=== PATIENT | male | born 1955 | race Caucasian/White ===

== ENCOUNTER 2018-01-16 09:21 | Emergency (ER) | payer BC ==
[~2018-01-16] VITALS: Ht 180.3 cm; Wt 93.2 kg
[2018-01-16] MEDS ORDERED: LIDOcaine 1.5% w/epinephrine 1:200,000 5ml ampul IJ ONE (10:20)
[2018-01-16] MEDS ORDERED: TETanus/Pertussis (Acell)/Diphther VAC/PF (Tdap-Adult) 0.5ml syringe IM ONE (10:20)
[2018-01-16] MEDS ORDERED: AMOX-422 PO (10:29)
[2018-01-16 10:35] VITALS: BP 171/89
== END 2018-01-16 11:15 | disposition home or self-care (01) ==
LOC: ER 09:22 → EDSEX 09:22 → ER 11:15
DX: K61.1 Rectal abscess (principal); Z79.2 Long term (current) use of antibiotics
CPT/HCPCS: 46040; 90471; 90715; 99284; A6266; A6449; J3490

== ENCOUNTER 2020-03-16 13:12 | Inpatient (IN) | payer BC ==
[~2020-03-16] VITALS: Ht 180.3 cm; Wt 90.4 kg
[2020-03-16] MEDS ORDERED: normal saline 1000ml 1,000 ML IV ONE (13:40)
[2020-03-16 14:16] LABS: BASOPHILS # (AUTO) 0.1 X10'3 (0-0.2); BASOPHILS % (AUTO) 0.7 % (0-1); EOSINOPHILS # (AUTO) 0.1 X10'3 (0-0.9); EOSINOPHILS % (AUTO) 0.8 % (0-6); HEMATOCRIT 46.1 % (42.0-52.0); LYMPHOCYTES # (AUTO) 2.8 X10'3 (1.1-4.8); LYMPHOCYTES % (AUTO) 15.7 % (21-51); MEAN CORPUSCULAR HEMOGLOBIN 30.3 PG (27.0-31.0); MEAN CORPUSCULAR HGB CONC 34.7 g/dL (33.0-36.5); MEAN CORPUSCULAR VOLUME 87.4 FL (78-98); MEAN PLATELET VOLUME 7.6 FL (7.4-10.4); MONOCYTES # (AUTO) 1.3 X10'3 (0-0.9); MONOCYTES % (AUTO) 7.1 % (2-12); NEUTROPHILS # (AUTO) 13.5 X10'3 (1.8-7.7); NEUTROPHILS % (AUTO) 75.7 % (42-75); PLATELET COUNT 245 X10'3 (140-440); RED BLOOD COUNT 5.27 X10'6 (4.70-6.10); RED CELL DISTRIBUTION WIDTH 13.2 % (11.5-14.5); WHITE BLOOD COUNT 17.9 X10'3 (4.5-11.0)
[2020-03-16 14:39] LABS: ALANINE AMINOTRANSFERASE 49 U/L (12-78); ALBUMIN 3.6 G/DL (3.4-5.0); ALBUMIN/GLOBULIN RATIO 0.8 (1.1-1.5); ALKALINE PHOSPHATASE 60 IU/L (46-116); ANION GAP 15 (8-16); ASPARTATE AMINO TRANSFERASE 17 U/L (10-37); BILIRUBIN,TOTAL 0.9 MG/DL (0.1-1.0); BLOOD UREA NITROGEN 22 MG/DL (7-18); BUN/CREATININE RATIO 16.9 (5.4-32.0); CALCIUM 9.6 MG/DL (8.5-10.1); CHLORIDE 101 MMOL/L (99-107); GLUCOSE 112 MG/DL (70-104); POTASSIUM 3.6 MMOL/L (3.5-5.1); SODIUM 138 MMOL/L (135-145); TOTAL CARBON DIOXIDE 21.9 MMOL/L (24-32); TOTAL PROTEIN 8.4 G/DL (6.4-8.2); eGFR 56 ML/MIN
[2020-03-16] MEDS ORDERED: clindamycin 600mg/D5W 50ml 50 ML IV ONE (14:40)
[2020-03-16 14:45] LABS: CLARITY,URINE CLEAR (Clear); COLOR,URINE YELLOW (Yellow); GLUCOSE, URINE NEGATIVE (Neg); KETONES,URINE TRACE mg/dl (Neg); LEUKOCYTE ESTERASE ,URINE NEGATIVE (Neg); NITRITES, URINE NEGATIVE (Neg); OCCULT BLOOD,URINE TRACE-LYSED (Neg); PH,URINE 5.5 (4.8-8.0); PROTEIN,URINE 30 mg/dl (Neg); UA COLLECTION TYPE NON-SPECIFIED
[2020-03-16 14:51] LABS: HYALINE CASTS 0-3 /LPF (NEGATIVE); MUCUS STRANDS FEW /LPF (Neg)
[2020-03-16 14:52] LABS: BACTERIA,URINE FEW /HPF (Neg); SQUAMOUS EPITHELIAL CELL,UR MODERATE /LPF (FEW); WBC,URINE 0-4 /HPF (0-4)
[2020-03-16] MEDS ORDERED: iohexol 300mg/ml 100ml inj. ONE (15:08)
[2020-03-16] MEDS ORDERED: ketorolac tromethamine 15mg/ml inj. IV ONE (16:05)
--- NOTE | 2020-03-16 16:17 | NUR ---
CHAPERONED PA WITH RECTAL EXAM, NO EXTERNAL BLOOD NOTED. HEMOCCULT NEGATIVE
[2020-03-16] MEDS ORDERED: potassium CL 10mEq/100ml bag 100 ML IV PRN ×2 (17:00)
[2020-03-16] MEDS ORDERED: potassium Cl 20 mEq SR tablet PO PRN ×2 (17:00)
[2020-03-16] MEDS ORDERED: magnesium Cl slow-release 64mg tablet PO PRN (17:00)
[2020-03-16] MEDS ORDERED: HYDROcodone/acetaminophen 5mg/325mg tablet PO PRN (17:00)
[2020-03-16] MEDS ORDERED: acetaminophen 325mg tablet PO PRN (17:00)
[2020-03-16] MEDS ORDERED: magnesium 4gm in 100ml NS 100 ML IV PRN (17:00)
[2020-03-16] MEDS ORDERED: magnesium 2GM in 50ml NS 50 ML IV PRN (17:00)
[2020-03-16] MEDS ORDERED: morphine 2 MG/ML inj. syringe IV PRN (17:00)
[2020-03-16] MEDS ORDERED: ondansetron/PF 4mg/2ml inj IV PRN (17:00)
[2020-03-16] MEDS ORDERED: ZINC50TA67 PO (17:04)
[2020-03-16] MEDS ORDERED: MAGN200T5 PO (17:05)
[2020-03-16] MEDS: normal saline 1000ml 1,000 ML IV SCH (18:45)
[2020-03-16] MEDS: K and/or MAG REPLACEMENT MC SCH (19:25)
[2020-03-16] MEDS: docusate sod 100mg capsule PO SCH (21:53)
--- NOTE | 2020-03-16 22:00 | NUR ---
Received report from CAMILO Nunn. Awaiting patient arrival to the floor.
--- NOTE | 2020-03-16 22:10 | NUR ---
Patient arrived to the floor via wheelchair accompanied by PCT. Placed in room 354C. Alert and oriented on room air, in no apparent distress. Call light and items of frequent use within reach. Will continue to monitor.
[2020-03-16 22:15] VITALS: BP 152/81
[2020-03-17] VITALS (21 sets, daily range): BP systolic 114–157; BP diastolic 60–89
[2020-03-17] MEDS: piperacillin/tazo 3.375gm/50ml 50 ML IV SCH ×4 (01:45→19:44)
[2020-03-17] MEDS: normal saline 1000ml 1,000 ML IV SCH ×3 (05:26→17:16)
[2020-03-17 05:44] LABS: BASOPHILS # (AUTO) 0.1 X10'3 (0-0.2); BASOPHILS % (AUTO) 0.5 % (0-1); EOSINOPHILS # (AUTO) 0.1 X10'3 (0-0.9); EOSINOPHILS % (AUTO) 0.9 % (0-6); HEMATOCRIT 39.6 % (42.0-52.0); HEMOGLOBIN 13.8 g/dl (14.0-17.9); LYMPHOCYTES # (AUTO) 2.7 X10'3 (1.1-4.8); LYMPHOCYTES % (AUTO) 19.1 % (21-51); MEAN CORPUSCULAR HEMOGLOBIN 30.3 PG (27.0-31.0); MEAN CORPUSCULAR HGB CONC 34.9 g/dL (33.0-36.5); MEAN CORPUSCULAR VOLUME 86.9 FL (78-98); MEAN PLATELET VOLUME 7.5 FL (7.4-10.4); MONOCYTES # (AUTO) 1.1 X10'3 (0-0.9); MONOCYTES % (AUTO) 7.9 % (2-12); NEUTROPHILS # (AUTO) 10.3 X10'3 (1.8-7.7); NEUTROPHILS % (AUTO) 71.6 % (42-75); PLATELET COUNT 238 X10'3 (140-440); RED BLOOD COUNT 4.56 X10'6 (4.70-6.10); RED CELL DISTRIBUTION WIDTH 13.3 % (11.5-14.5); WHITE BLOOD COUNT 14.3 X10'3 (4.5-11.0)
[2020-03-17 05:56] LABS: ANION GAP 10 (8-16); BLOOD UREA NITROGEN 21 MG/DL (7-18); BUN/CREATININE RATIO 17.6 (5.4-32.0); CALCIUM 8.4 MG/DL (8.5-10.1); CHLORIDE 104 MMOL/L (99-107); CREATININE 1.19 MG/DL (0.60-1.10); GLUCOSE 97 MG/DL (70-104); POTASSIUM 3.5 MMOL/L (3.5-5.1); SODIUM 139 MMOL/L (135-145); TOTAL CARBON DIOXIDE 25.1 MMOL/L (24-32); eGFR 62 ML/MIN
--- NOTE | 2020-03-17 06:04 | NUR ---
Problems reprioritized. Patient report given, questions answered & plan of care reviewed with CAMILO Cooney.
--- NOTE | 2020-03-17 06:31 | NUR ---
Patient in room [facility] 354. I have received report from CAMILO Grubbs and had the opportunity to ask questions and assume patient care.
[2020-03-17] MEDS: docusate sod 100mg capsule PO SCH ×2 (07:09→19:45)
[2020-03-17] MEDS: K and/or MAG REPLACEMENT MC SCH ×2 (08:00→20:00)
--- NOTE | 2020-03-17 14:20 | NUR ---
Pt out to OR. Report given to CAMILO Hampton.
[2020-03-17] MEDS ORDERED: sevoflurane 250ml liquid IH ONE (14:32)
[2020-03-17] MEDS ORDERED: famotidine/PF 10 mg/ml inj IV ONE (14:41)
[2020-03-17] MEDS ORDERED: fentaNYL/PF 50MCG/1 ML 2ML syringe ONE (14:42)
[2020-03-17] MEDS ORDERED: midazolam 2 mg/2 ml injection ONE (14:46)
[2020-03-17] MEDS ORDERED: propofol inj 20 ML IV ONE (14:51)
[2020-03-17] MEDS ORDERED: LIDOcaine 2% (20mg/ml) 5ml vial ONE ×2 (14:51→15:03)
[2020-03-17] MEDS ORDERED: ondansetron/PF 4mg/2ml inj ONE (14:52)
[2020-03-17] MEDS ORDERED: dexamethasone sod phosphate 4mg/ml inj. ONE (14:52)
[2020-03-17] MEDS ORDERED: morphine 10mg/ml inj. ONE (15:12)
--- NOTE | 2020-03-17 15:19 | NUR ---
RECEIVED FROM OR VIA BED ACCOMPANIED BY ANESTHESIOLOGIST DR ANAYA, REPORT GIVEN. PT DROWSY BUT AROUSES WITH NO COMPLAINT OF PAIN. 18 GAUGE PIV R AC PATENT AND RUNNING NS AT 100 ML/HR. HARPER, ABD SOFT, PPULSES PRESENT, BRISK CAP REFILL, SKIN PINK AND WARM, VSS. SHABBIR RECTAL DRESSING CDI COMPRISED OF PACKING, 4X4 AND MESH UNDEERWEAR. SCDS APPLIED AND PT RESTING COMFORTABLY
[2020-03-17] MEDS ORDERED: HYDROcodone/acetaminophen 10/325mg tab PO PRN (15:20)
[2020-03-17] MEDS ORDERED: hydrALAZINE 20mg/ml inj. IV PRN (15:30)
[2020-03-17] MEDS ORDERED: labetalol 20mg/4ml (5mg/ml) syringe IV PRN (15:30)
[2020-03-17] MEDS ORDERED: meperidine/PF 25mg/ml syringe IV PRN ×3 (15:30)
[2020-03-17] MEDS ORDERED: ondansetron/PF 4mg/2ml inj IV PRN (15:30)
[2020-03-17] MEDS ORDERED: ringers solution, lacted 1,000 ML IV SCH (15:30)
[2020-03-17] MEDS ORDERED: acetaminophen 1,000mg/100ml IV 100 ML IV PRN (15:30)
[2020-03-17] MEDS ORDERED: morphine 4 MG/ML inj SYRINge IV PRN (15:30)
[2020-03-17] MEDS ORDERED: proCHLORperazine 10 MG/2 ml inj IV PRN (15:30)
[2020-03-17] MEDS ORDERED: morphine 2 MG/ML inj. syringe IV PRN (15:30)
--- NOTE | 2020-03-17 16:36 | NUR ---
TRANSFERRED VIA BED, REPORT GIVEN. PT AWAKE AND ALERT WITH NO COMPLAINT OF PAIN. 18 GAUGE PIV R AC PATENT AND RUNNING NS AT 100 ML/HR. HARPER, ABD SOFT, PPULSES PRESENT, BRISK CAP REFILL, SKIN PINK AND WARM, VSS. SHABBIR RECTAL DRESSING CDI COMPRISED OF PACKING, 4X4 AND MESH UNDERWEAR. SCDS APPLIED AND PT RESTING COMFORTABLY. LEFT IN CARE OF MISAEL PAGE.
--- NOTE | 2020-03-17 17:43 | NUR ---
Pt back from surgery around 1640. Received report from evita. Pt stable c/o mild nausea. PRN Zofran given. V/S 97.9,, 124/82, 75, 14, 96%. No s/s bleeding or complication noted.
--- NOTE | 2020-03-17 18:30 | NUR ---
Problems reprioritized. Patient report given, questions answered & plan of care reviewed with CAMILO Grubbs. Pt resting comfortably in bed.
--- NOTE | 2020-03-17 18:30 | NUR ---
Patient in room [facility] 354C. I have received report from CAMILO Cooney and had the opportunity to ask questions and assume patient care.
[2020-03-17] MEDS: lactobacillus rhamnosus 10,000 MMU CELLS/CAPSULE PO SCH (19:45)
[2020-03-18] VITALS: BP 133/75
[2020-03-18] MEDS: piperacillin/tazo 3.375gm/50ml 50 ML IV SCH ×2 (02:30→08:38)
[2020-03-18 04:00] VITALS: BP 114/62
[2020-03-18 05:14] LABS: BASOPHILS # (AUTO) 0.1 X10'3 (0-0.2); BASOPHILS % (AUTO) 0.5 % (0-1); EOSINOPHILS # (AUTO) 0.1 X10'3 (0-0.9); HEMATOCRIT 37.9 % (42.0-52.0); LYMPHOCYTES # (AUTO) 2.6 X10'3 (1.1-4.8); LYMPHOCYTES % (AUTO) 24.1 % (21-51); MEAN CORPUSCULAR HEMOGLOBIN 29.8 PG (27.0-31.0); MEAN CORPUSCULAR HGB CONC 34.2 g/dL (33.0-36.5); MEAN CORPUSCULAR VOLUME 87.3 FL (78-98); MEAN PLATELET VOLUME 7.4 FL (7.4-10.4); MONOCYTES # (AUTO) 0.9 X10'3 (0-0.9); MONOCYTES % (AUTO) 8.2 % (2-12); NEUTROPHILS # (AUTO) 7.1 X10'3 (1.8-7.7); NEUTROPHILS % (AUTO) 66.2 % (42-75); PLATELET COUNT 237 X10'3 (140-440); RED BLOOD COUNT 4.34 X10'6 (4.70-6.10); RED CELL DISTRIBUTION WIDTH 13.2 % (11.5-14.5); WHITE BLOOD COUNT 10.8 X10'3 (4.5-11.0)
[2020-03-18 05:17] LABS: ALBUMIN 2.8 G/DL (3.4-5.0); ANION GAP 11 (8-16); BLOOD UREA NITROGEN 17 MG/DL (7-18); BUN/CREATININE RATIO 14.4 (5.4-32.0); CALCIUM 8.7 MG/DL (8.5-10.1); CHLORIDE 108 MMOL/L (99-107); CREATININE 1.18 MG/DL (0.60-1.10); GLUCOSE 98 MG/DL (70-104); MAGNESIUM 2.2 MG/DL (1.5-2.4); POTASSIUM 3.8 MMOL/L (3.5-5.1); SODIUM 144 MMOL/L (135-145); TOTAL CARBON DIOXIDE 25.4 MMOL/L (24-32); eGFR 62 ML/MIN
--- NOTE | 2020-03-18 06:19 | NUR ---
Problems reprioritized. Patient report given, questions answered & plan of care reviewed with CAMILO Weber.
--- NOTE | 2020-03-18 07:12 | NUR ---
Patient in room [facility] 354. I have received report from Humera Del Angel and had the opportunity to ask questions and assume patient care.
[2020-03-18 07:51] VITALS: BP 129/97
[2020-03-18] MEDS: K and/or MAG REPLACEMENT MC SCH (08:00)
[2020-03-18] MEDS: docusate sod 100mg capsule PO SCH (08:39)
[2020-03-18] MEDS: lactobacillus rhamnosus 10,000 MMU CELLS/CAPSULE PO SCH (08:39)
[2020-03-18 11:00] VITALS: BP 133/70
[2020-03-18] MEDS ORDERED: HYDR-4353 PO (13:25)
[2020-03-18] MEDS ORDERED: AMOX-422 PO (13:25)
--- NOTE | 2020-03-18 16:20 | NUR ---
Pt was Dc to home with his . Pt is A & O x4, in no apparent distress. pt verbalizes understanding of all DC orders and the importance of following up with Dr Villareal within 1 week. IV cath removed intact. Pt packed all personal belongings and asked to be walked to the front where we met his . She took him home. Pt super sweet and grateful.
== END 2020-03-18 16:16 | disposition home or self-care (01) | DRG 603 ==
LOC: ER 13:12 → ED HOLD 16:59 → SUR 3N 22:09
PROVIDERS: ADMIT Internal Medicine; ATTEND Internal Medicine
PROC: 0W9M0ZZ Drainage of Male Perineum, Open Approach (ICD-10-PCS; principal; 2020-03-17 14:32)
DX: L02.215 Cutaneous abscess of perineum (principal); K61.1 Rectal abscess; N17.9 Acute kidney failure, unspecified; L98.8 Other specified disorders of the skin and subcutaneous tissue
CPT/HCPCS: 36415; 72193; 80048; 80053; 81001; 82948; 83605; 83735; 84145; 85025; 87040; 87070; 87075; 87076; 87077; 87081; 87102; 87185; 87186; 93005; 96365; 99285; A4618; A6407; A6449; A7000; G0378; J1100; J1885; J2001; J2250; J2270; J2405; J2543; J2704; J3010; J3490; J7030; Q9967

== ENCOUNTER 2020-11-18 10:18 | Emergency (ER) | payer BC, SELFPAY ==
[~2020-11-18] VITALS: Ht 180.3 cm; Wt 90.4 kg
[~2020-11-18 10:18] MED LIST: MAGN200T5 PO; ZINC50TA67 PO
[2020-11-18] MEDS ORDERED: ondansetron/PF 4mg/2ml inj IV ONE (15:05)
[2020-11-18] MEDS ORDERED: normal saline 1000ML IV soln IV ONE (15:05)
[2020-11-18 15:41] LABS: BASOPHILS % (AUTO) 0.5 % (0-1); EOSINOPHILS # (AUTO) 0.1 X10'3 (0-0.9); EOSINOPHILS % (AUTO) 1.1 % (0-6); HEMATOCRIT 48.1 % (42.0-52.0); HEMOGLOBIN 16.6 g/dl (14.0-17.9); LYMPHOCYTES # (AUTO) 2.9 X10'3 (1.1-4.8); LYMPHOCYTES % (AUTO) 29.3 % (21-51); MEAN CORPUSCULAR HEMOGLOBIN 30.1 PG (27.0-31.0); MEAN CORPUSCULAR HGB CONC 34.6 g/dL (33.0-36.5); MEAN CORPUSCULAR VOLUME 87.1 FL (78-98); MEAN PLATELET VOLUME 7.3 FL (7.4-10.4); MONOCYTES # (AUTO) 0.7 X10'3 (0-0.9); MONOCYTES % (AUTO) 6.7 % (2-12); NEUTROPHILS # (AUTO) 6.3 X10'3 (1.8-7.7); NEUTROPHILS % (AUTO) 62.4 % (42-75); PLATELET COUNT 253 X10'3 (140-440); RED BLOOD COUNT 5.52 X10'6 (4.70-6.10); RED CELL DISTRIBUTION WIDTH 13.4 % (11.5-14.5)
[2020-11-18 15:49] LABS: ALANINE AMINOTRANSFERASE 60 U/L (12-78); ALBUMIN 4.1 G/DL (3.4-5.0); ALKALINE PHOSPHATASE 58 IU/L (46-116); ANION GAP 9 (8-16); ASPARTATE AMINO TRANSFERASE 27 U/L (10-37); BILIRUBIN,TOTAL 0.8 MG/DL (0.1-1.0); BLOOD UREA NITROGEN 19 MG/DL (7-18); BUN/CREATININE RATIO 16.4 (5.4-32.0); CALCIUM 9.2 MG/DL (8.5-10.1); CHLORIDE 102 MMOL/L (99-107); CREATININE 1.16 MG/DL (0.60-1.10); GLUCOSE 100 MG/DL (70-104); POTASSIUM 4.1 MMOL/L (3.5-5.1); SODIUM 139 MMOL/L (135-145); TOTAL PROTEIN 8.3 G/DL (6.4-8.2); eGFR 63 ML/MIN
[2020-11-18] MEDS ORDERED: iohexol 300mg/ml 100ml inj. ONE (15:55)
[2020-11-18] MEDS ORDERED: ONDA4TAB6 PO (17:20)
[2020-11-18 17:32] VITALS: BP 158/76
== END 2020-11-18 17:30 | disposition home or self-care (01) ==
LOC: ER 10:18
DX: S00.83XA Contusion of other part of head, initial encounter (principal); R10.84 Generalized abdominal pain; R11.0 Nausea; R58 Hemorrhage, not elsewhere classified; F07.81 Postconcussional syndrome; Z79.899 Other long term (current) drug therapy; Y08.89XA Assault by other specified means, initial encounter; Y93.89 Activity, other specified; Y92.89 Other specified places as the place of occurrence of the external cause; Y99.8 Other external cause status
CPT/HCPCS: 36415; 70450; 70486; 71045; 72125; 74177; 80053; 85025; 85610; 86885; 86900; 86901; 93005; 96361; 96374; 99285; J2405; J7030; Q9967

== ENCOUNTER 2023-08-30 17:00 | Inpatient (IN) | payer BC, MEDICARE ==
[~2023-08-30] VITALS: Ht 180.3 cm; Wt 94.1 kg
[~2023-08-30 17:00] MED LIST changes: +ONDA4TAB6 PO
[2023-08-30 17:30] LABS: BASOPHILS % (AUTO) 0.3 % (0-1); EOSINOPHILS # (AUTO) 0.1 X10'3 (0-0.9); EOSINOPHILS % (AUTO) 0.9 % (0-6); HEMATOCRIT 44.7 % (42.0-52.0); HEMOGLOBIN 15.5 g/dl (14.0-17.9); LYMPHOCYTES # (AUTO) 4.2 X10'3 (1.1-4.8); LYMPHOCYTES % (AUTO) 35.3 % (21-51); MEAN CORPUSCULAR HEMOGLOBIN 30.6 PG (27.0-31.0); MEAN CORPUSCULAR HGB CONC 34.8 g/dL (33.0-36.5); MEAN CORPUSCULAR VOLUME 88.1 FL (78-98); MEAN PLATELET VOLUME 7.8 FL (7.4-10.4); MONOCYTES # (AUTO) 0.9 X10'3 (0-0.9); MONOCYTES % (AUTO) 7.4 % (2-12); NEUTROPHILS # (AUTO) 6.7 X10'3 (1.8-7.7); NEUTROPHILS % (AUTO) 56.1 % (42-75); PLATELET COUNT 211 X10'3 (140-440); RED BLOOD COUNT 5.07 X10'6 (4.70-6.10); RED CELL DISTRIBUTION WIDTH 13.3 % (11.5-14.5)
[2023-08-30 17:34] LABS: ALANINE AMINOTRANSFERASE 79 U/L (12-78); ALKALINE PHOSPHATASE 67 IU/L (46-116); ANION GAP 9 (8-16); ASPARTATE AMINO TRANSFERASE 36 U/L (10-37); BILIRUBIN,TOTAL 0.4 MG/DL (0.1-1.0); BLOOD UREA NITROGEN 20 MG/DL (7-18); BUN/CREATININE RATIO 14.9 (10.0-20.0); CALCIUM 9.1 MG/DL (8.5-10.1); CHLORIDE 104 MMOL/L (99-107); CREATININE 1.34 MG/DL (0.60-1.10); GLUCOSE 152 MG/DL (70-104); POTASSIUM 3.6 MMOL/L (3.5-5.1); SODIUM 141 MMOL/L (135-145); TOTAL CARBON DIOXIDE 28.1 MMOL/L (24-32); TOTAL PROTEIN 7.9 G/DL (6.4-8.2); eCRCL 59 ML/MIN; eGFR 53 ML/MIN
[2023-08-30] MEDS: ketamine 50 mg/ml 10ml vial IV ONE (17:50)
[2023-08-30 17:55] LABS: PRO BRAIN NATRIURETIC PEPTIDE 350 PG/ML (0-125)
[2023-08-30] MEDS: propofol 10mg/ml 20ml vial IV ONE (18:00)
[2023-08-30 20:07] LABS: INR 1.1 INR; PROTHROMBIN TIME 11.4 SECONDS (9.0-12.0)
[2023-08-30] MEDS ORDERED: atorvastatin 20mg tablet PO SCH (20:35)
[2023-08-30] MEDS: MESSAGE TO NURSING IV ONE (20:58)
[2023-08-30] MEDS: atorvastatin 20mg tablet PO ONE (21:16)
[2023-08-30] MEDS: metoprolol tartrate 1mg/ml inj IV ONE (21:17)
[2023-08-30] MEDS: heparin 25,000 UNIT/250ml bag 250 ML IV PRN (21:22)
[2023-08-30] MEDS: heparin 10,000 units/1 ML INJ IV ONE (21:23)
[2023-08-30] MEDS ORDERED: potassium Cl 20 mEq SR tablet PO PRN ×2 (23:20)
[2023-08-30] MEDS ORDERED: acetaminophen 325mg tablet PO PRN (23:20)
[2023-08-30] MEDS ORDERED: morphine 2 MG/ML inj. syringe IV PRN (23:20)
[2023-08-30] MEDS ORDERED: magnesium 4gm in 100ml NS 100 ML IV PRN (23:20)
[2023-08-30] MEDS ORDERED: magnesium 2GM in 50ml NS 50 ML IV PRN (23:20)
[2023-08-30] MEDS ORDERED: magnesium Cl slow-release 64mg tablet PO PRN (23:20)
[2023-08-30] MEDS ORDERED: potassium Cl 40MEQ/1/2NS 520ml 520 ML IV PRN (23:20)
[2023-08-30] MEDS ORDERED: mag hydrox/Alum hydrox/simeth 30ml oral suspension PO PRN (23:20)
[2023-08-30] MEDS ORDERED: magnesium hydroxide 30ml (MOM) UD suspension PO PRN (23:20)
[2023-08-30 23:49] LABS: HEMOGLOBIN A1C 5.5 % (4.5-6.2)
[2023-08-31] VITALS (7 sets, daily range): BP systolic 126–164; BP diastolic 57–69; PULSE 85–99; RESP 12–18; O2SAT 95–99
[2023-08-31] MEDS: amiodarone 200mg tablet PO SCH (00:30)
[2023-08-31] MEDS: metoprolol tartrate 25mg tablet PO SCH (00:32)
[2023-08-31] MEDS ORDERED: ROSU10TA28 PO (01:51)
[2023-08-31] MEDS ORDERED: LOSA50TA64 PO (01:51)
[2023-08-31 03:33] LABS: BASOPHILS # (AUTO) 0.1 X10'3 (0-0.2); HEMOGLOBIN 13.8 g/dl (14.0-17.9); LYMPHOCYTES # (AUTO) 3.9 X10'3 (1.1-4.8); LYMPHOCYTES % (AUTO) 30.4 % (21-51); MEAN CORPUSCULAR HEMOGLOBIN 30.3 PG (27.0-31.0); MEAN CORPUSCULAR HGB CONC 34.5 g/dL (33.0-36.5); MONOCYTES # (AUTO) 0.9 X10'3 (0-0.9); NEUTROPHILS # (AUTO) 7.8 X10'3 (1.8-7.7)
[2023-08-31 03:34] LABS: BASOPHILS % (AUTO) 0.6 % (0-1); EOSINOPHILS # (AUTO) 0.2 X10'3 (0-0.9); EOSINOPHILS % (AUTO) 1.3 % (0-6); HEMATOCRIT 40.1 % (42.0-52.0); MEAN CORPUSCULAR VOLUME 87.8 FL (78-98); MEAN PLATELET VOLUME 7.7 FL (7.4-10.4); MONOCYTES % (AUTO) 7.2 % (2-12); NEUTROPHILS % (AUTO) 60.5 % (42-75); PLATELET COUNT 203 X10'3 (140-440); RED BLOOD COUNT 4.57 X10'6 (4.70-6.10); RED CELL DISTRIBUTION WIDTH 13.2 % (11.5-14.5); WHITE BLOOD COUNT 12.9 X10'3 (4.5-11.0)
[2023-08-31 03:45] LABS: INR 1.1 INR; PROTHROMBIN TIME 11.6 SECONDS (9.0-12.0)
[2023-08-31 03:50] LABS: ALANINE AMINOTRANSFERASE 79 U/L (12-78); ALBUMIN 3.5 G/DL (3.4-5.0); ALBUMIN/GLOBULIN RATIO 1.1 (1.1-1.5); ALKALINE PHOSPHATASE 46 IU/L (46-116); ANION GAP 8 (8-16); ASPARTATE AMINO TRANSFERASE 155 U/L (10-37); BILIRUBIN,TOTAL 0.6 MG/DL (0.1-1.0); BLOOD UREA NITROGEN 16 MG/DL (7-18); BUN/CREATININE RATIO 14.5 (10.0-20.0); CALCIUM 8.9 MG/DL (8.5-10.1); CHLORIDE 106 MMOL/L (99-107); CHOLESTEROL 113 MG/DL (0-200); GLUCOSE 103 MG/DL (70-104); HDL CHOLESTEROL 38 MG/DL (35-60); LDL CHOLESTEROL 56 MG/DL (50-100); MAGNESIUM 1.8 MG/DL (1.5-2.4); POTASSIUM 3.8 MMOL/L (3.5-5.1); SODIUM 141 MMOL/L (135-145); TOTAL CARBON DIOXIDE 27.4 MMOL/L (24-32); TOTAL PROTEIN 6.7 G/DL (6.4-8.2); TRIGLYCERIDES 133 MG/DL (20-135); eCRCL 69 ML/MIN; eGFR 67 ML/MIN
[2023-08-31] MEDS ORDERED: MESSAGE TO NURSING IV ONE (04:05)
[2023-08-31] MEDS: heparin 10,000 units/1 ML INJ IV PRN (04:27)
[2023-08-31] MEDS: MESSAGE TO NURSING IV ONE ×2 (04:32→14:31)
[2023-08-31] MEDS ORDERED: ROSUVASTATIN CALCIUM 5 MG TABLET PO SCH (08:00)
[2023-08-31] MEDS: nitroGLYCERIN 0.1mg/hour patch TD SCH (08:00)
[2023-08-31] MEDS: pantoprazole 40 MG vial IV SCH (08:00)
[2023-08-31] MEDS: K and/or MAG REPLACEMENT MC SCH (08:00)
[2023-08-31] MEDS: losartan 50mg tablet PO SCH (08:39)
[2023-08-31] MEDS: aspirin 81mg tab.chew PO SCH (08:39)
[2023-08-31 09:22] LABS: FREE T4 (FREE THYROXINE) 0.86 NG/DL (0.73-1.40); THYROID STIMULATING HORMONE 3.18 ulU/ml (0.34-4.50)
[2023-08-31] MEDS ORDERED: midazolam 1 mg/ML 2ml injection ONE (11:51)
[2023-08-31] MEDS ORDERED: verapamil 2.5 mg/ml inj IV ONE (11:51)
[2023-08-31] MEDS ORDERED: fentaNYL/PF 50MCG/1 ML 2ML syringe ONE (11:51)
[2023-08-31] MEDS ORDERED: LIDOcaine 1% (10mg/ml) 2ml vial ONE (11:51)
[2023-08-31] MEDS ORDERED: iohexol 350MG/ML 100ml bottle IV ONE (11:52)
[2023-08-31] MEDS ORDERED: iohexol 350 MG/ML 50ML vial IV ONE (11:52)
[2023-08-31] MEDS ORDERED: heparin 1,000unit/ml 10ml vial 10 ML ONE (11:52)
[2023-08-31] MEDS ORDERED: nitroGLYCERIN 500mcg/5mL D5W 5 ML IV ONE (11:54)
[2023-08-31] MEDS: ROSUVASTATIN CALCIUM 5 MG TABLET PO SCH (12:05)
[2023-08-31 13:18] LABS: ISTAT HGB ART 13.6 g/dl (14.0-17.9); ISTAT Hct ART 40 %PCV (42-52); ISTAT O2 SATURATION ARTERIAL 96 % (95-98); ISTAT SOURCE ART
[2023-08-31] MEDS ORDERED: aspirin 81mg tab.chew PO ONE (14:15)
[2023-08-31] MEDS: ondansetron/PF 4mg/2ml inj IV PRN (14:20)
[2023-08-31] MEDS: aspirin 81mg tab.chew PO ONE ×2 (14:57→15:07)
[2023-08-31] MEDS ORDERED: dextrose 50%-water 50ml dispensing syringe IV PRN ×2 (15:40→23:40)
[2023-08-31] MEDS ORDERED: insulin glargine (Lantus) pen - multi-dose SQ PRN (15:40)
[2023-08-31] MEDS ORDERED: epiNEPHrine 1 mg/ml inj ONE (15:54)
[2023-08-31] MEDS ORDERED: vancomycin 1,000mg inj ONE (15:55)
[2023-08-31] MEDS ORDERED: BUPIVAcaine/PF 2.5mg/ml (0.25%) 10ml vial ONE (15:55)
[2023-08-31] MEDS ORDERED: heparin 10,000 units/1 ML INJ ONE (15:55)
[2023-08-31] MEDS ORDERED: ceFAZolin 1000mg inj ONE (15:55)
[2023-08-31] MEDS ORDERED: BUPIVAcaine 2.5mg/ml inj 50ml vial (contains preservative) ONE (15:55)
[2023-08-31] MEDS ORDERED: aminocaproic acid 250 MG/1 ML inj. ONE (16:00)
[2023-08-31 16:11] LABS: ABG BASE EXCESS -0.8 mmol/L (-2.0-2.0); ABG HCO3 22.7 mmol/L (22.0-26.0); ABG OXYGEN SATURATION 96.7 % (94-97); ABG PCO2 (T) 34.3 mmHg (35.0-48.0); ABG PH (T) 7.439 (7.340-7.440); ABG PO2 (T) 82.5 mmHg (75.0-100.0); ALLEN'S TEST POSITIVE; FCOHb 0.7 % (0.0-3.9); FHHb 3.3 % (0.0-5.0); FMetHb 0.3 % (0.0-1.5); FO2Hb 95.7 % (94-97); MODE ROOM AIR; TOTAL HEMOGLOBIN 13.9 G/dl (14.0-17.9)
[2023-08-31] MEDS ORDERED: BUPIVACAINE liposomal/PF 13.3 MG/ML vial IM ONE (16:34)
[2023-08-31] MEDS ORDERED: sevoflurane 250ml liquid IH ONE (17:26)
[2023-08-31] MEDS ORDERED: MIDAZolam 1 MG/ML 5ML VIAL ONE (17:29)
[2023-08-31] MEDS ORDERED: SUfentanil 50mcg/ml 1ml amp IV ONE (17:29)
[2023-08-31 18:11] LABS: ABG BASE EXCESS 0.6 mmol/L (-2.0-2.0); ABG HCO3 25.3 mmol/L (22.0-26.0); ABG OXYGEN SATURATION 97.3 % (94-97); ABG PCO2 40.8 mmHg (35.0-48.0); ABG PO2 96.9 mmHg (75.0-100.0); CL (ABG) 105 mmol/L (99-107); FCOHb 0.3 % (0.0-3.9); FHHb 2.7 % (0.0-5.0); FMetHb 0.3 % (0.0-1.5); FO2Hb 96.7 % (94-97); GLUCOSE (ABG) 103 mg/dl (70-104); IONIZED CA (ABG) 1.14 mmol/L (1.10-1.30); K (ABG) 3.8 mmol/L (3.5-5.1); TOTAL HEMOGLOBIN 13.2 G/dl (14.0-17.9)
[2023-08-31] MEDS: ceFAZolin 1000mg inj IR ONE (18:30)
[2023-08-31] MEDS ORDERED: albumin (Human) 5% 250ml 250 ML IV ONE ×3 (19:18→21:37)
[2023-08-31] MEDS ORDERED: rocuronium 10mg/ml inj IV ONE ×3 (19:50)
[2023-08-31] MEDS ORDERED: propofol inj 20 ML IV ONE (19:50)
[2023-08-31 20:00] LABS: ABG BASE EXCESS VENOUS -2.9 mmol/L (-2.0 - 2.0); ABG HCO3 VENOUS 22.2 mmol/L (21.0-28.0); ABG OXYGEN SATURATION VENOUS 73.6 % (75 - 99 %); ABG PCO2 VENOUS 40.1 mmHg (41.0-54.0); ABG PH (VENOUS) 7.362 (7.310-7.450); ABG PO2 VENOUS 37.8 mmHg (25.0-35.0); CL (ABG) 104 mmol/L (99-107); FCOHb VENOUS 0.5 %; FHHb VENOUS 26.2 %; FMetHb VENOUS 0.3 % (0.0 - 0.5); GLUCOSE (ABG) 115 mg/dl (70-104); IONIZED CA (ABG) 1.09 mmol/L (1.10-1.30); K (ABG) 3.9 mmol/L (3.5-5.1); TOTAL HEMOGLOBIN 12.6 G/dl (14.0-17.9)
[2023-08-31 20:33] LABS: ABG BASE EXCESS VENOUS -4.7 mmol/L (-2.0 - 2.0); ABG HCO3 VENOUS 20.9 mmol/L (21.0-28.0); ABG OXYGEN SATURATION VENOUS 46.1 % (75 - 99 %); ABG PCO2 VENOUS 40.4 mmHg (41.0-54.0); ABG PH (VENOUS) 7.331 (7.310-7.450); ABG PO2 VENOUS 26.4 mmHg (25.0-35.0); CL (ABG) 104 mmol/L (99-107); FCOHb VENOUS 0.4 %; FHHb VENOUS 53.5 %; FMetHb VENOUS 0.3 % (0.0 - 0.5); FO2Hb VENOUS 45.8 %; GLUCOSE (ABG) 119 mg/dl (70-104); IONIZED CA (ABG) 1.07 mmol/L (1.10-1.30); TOTAL HEMOGLOBIN 11.7 G/dl (14.0-17.9)
[2023-08-31 21:02] LABS: ABG BASE EXCESS VENOUS -6.7 mmol/L (-2.0 - 2.0); ABG HCO3 VENOUS 19.4 mmol/L (21.0-28.0); ABG OXYGEN SATURATION VENOUS 67.4 % (75 - 99 %); ABG PH (VENOUS) 7.293 (7.310-7.450); ABG PO2 VENOUS 38.1 mmHg (25.0-35.0); CL (ABG) 104 mmol/L (99-107); FHHb VENOUS 32.5 %; FMetHb VENOUS 0.3 % (0.0 - 0.5); FO2Hb VENOUS 67.2 %; GLUCOSE (ABG) 150 mg/dl (70-104); IONIZED CA (ABG) 1.07 mmol/L (1.10-1.30); K (ABG) 3.9 mmol/L (3.5-5.1)
[2023-08-31 21:42] LABS: ABG HCO3 19.5 mmol/L (22.0-26.0); ABG OXYGEN SATURATION 98.1 % (94-97); ABG PCO2 34.3 mmHg (35.0-48.0); ABG PH 7.373 (7.340-7.440); ABG PO2 119.4 mmHg (75.0-100.0); CL (ABG) 107 mmol/L (99-107); FCOHb 0.3 % (0.0-3.9); FHHb 1.9 % (0.0-5.0); FMetHb 0.3 % (0.0-1.5); FO2Hb 97.5 % (94-97); GLUCOSE (ABG) 144 mg/dl (70-104); IONIZED CA (ABG) 1.11 mmol/L (1.10-1.30); K (ABG) 3.6 mmol/L (3.5-5.1); TOTAL HEMOGLOBIN 11.5 G/dl (14.0-17.9)
[2023-08-31 21:44] LABS: ACTIVATED CLOTTING TIME 127 SEC (101-148)
[2023-08-31] MEDS: ringers solution, lacted 1,000 ML IV SCH (22:04)
[2023-08-31] MEDS: normal saline 1000ml 1,000 ML IV ONE (22:04)
[2023-08-31] MEDS: MESSAGE TO PHARMACY IJ ONE (22:04)
[2023-08-31] MEDS: MESSAGE TO NURSING PO ONE ×3 (22:05)
[2023-08-31] MEDS: Insulin Reg/NS 100units/100mL 100 ML IV SCH ×2 (22:05→23:42)
[2023-08-31] MEDS: cefazolin 2gm/D5W 100mL 100 ML IV ONE (22:06)
[2023-08-31] MEDS: vancomycin 1,500 MG in NS 300ml IV soln IV ONE (22:06)
[2023-08-31] MEDS: mupirocin 2% nasal ointment 1gm UD NS SCH (22:07)
[2023-08-31 22:54] LABS: ABG BASE EXCESS -4.7 mmol/L (-2.0-2.0); ABG HCO3 20.1 mmol/L (22.0-26.0); ABG OXYGEN SATURATION 96.6 % (94-97); ABG PCO2 (T) 34.5 mmHg (35.0-48.0); ABG PH (T) 7.378 (7.340-7.440); ABG PO2 (T) 85.1 mmHg (75.0-100.0); FCOHb 0.4 % (0.0-3.9); FHHb 3.4 % (0.0-5.0); FMetHb 0.3 % (0.0-1.5); FO2Hb 95.9 % (94-97); MODE VENT - SIMV; PEEP 5 cm H2O; RESPIRATORY RATE 12 b/min; TIDAL VOLUME 600 mL; TOTAL HEMOGLOBIN 12.5 G/dl (14.0-17.9)
[2023-08-31 23:13] LABS: BASOPHILS % (AUTO) 0.1 % (0-1); EOSINOPHILS # (AUTO) 0.1 X10'3 (0-0.9); EOSINOPHILS % (AUTO) 0.6 % (0-6); HEMATOCRIT 31.3 % (42.0-52.0); HEMOGLOBIN 10.6 g/dl (14.0-17.9); LYMPHOCYTES # (AUTO) 2.1 X10'3 (1.1-4.8); LYMPHOCYTES % (AUTO) 16.9 % (21-51); MEAN CORPUSCULAR HEMOGLOBIN 30.3 PG (27.0-31.0); MEAN CORPUSCULAR VOLUME 89.1 FL (78-98); MEAN PLATELET VOLUME 7.6 FL (7.4-10.4); MONOCYTES # (AUTO) 0.4 X10'3 (0-0.9); NEUTROPHILS # (AUTO) 9.9 X10'3 (1.8-7.7); NEUTROPHILS % (AUTO) 79.4 % (42-75); PLATELET COUNT 112 X10'3 (140-440); RED BLOOD COUNT 3.51 X10'6 (4.70-6.10); RED CELL DISTRIBUTION WIDTH 13.4 % (11.5-14.5); WHITE BLOOD COUNT 12.5 X10'3 (4.5-11.0)
[2023-08-31] MEDS: dexmedetomidine inj. 400 MCG in normal saline 100ml IV soln 96 ML IV SCH (23:15)
[2023-08-31] MEDS ORDERED: dexmedetomidine inj. 1,000 MCG in normal saline 250ml IV soln 240 ML IV SCH (23:25)
[2023-08-31] MEDS ORDERED: ipratropium 0.5 MG/2.5ML nebule IH SCH (23:30)
[2023-08-31 23:32] LABS: APTT 31 SECONDS (22-32); INR 1.3 INR; PROTHROMBIN TIME 13.9 SECONDS (9.0-12.0)
[2023-08-31 23:35] LABS: ALANINE AMINOTRANSFERASE 40 U/L (12-78); ALBUMIN 2.5 G/DL (3.4-5.0); ALBUMIN/GLOBULIN RATIO 1.3 (1.1-1.5); ALKALINE PHOSPHATASE 22 IU/L (46-116); ANION GAP 10 (8-16); ASPARTATE AMINO TRANSFERASE 60 U/L (10-37); BILIRUBIN,TOTAL 0.8 MG/DL (0.1-1.0); BLOOD UREA NITROGEN 11 MG/DL (7-18); BUN/CREATININE RATIO 13.4 (10.0-20.0); CALCIUM 6.4 MG/DL (8.5-10.1); CHLORIDE 112 MMOL/L (99-107); CREATININE 0.82 MG/DL (0.60-1.10); GLUCOSE 124 MG/DL (70-104); MAGNESIUM 1.2 MG/DL (1.5-2.4); PHOSPHORUS 2.7 MG/DL (2.3-4.5); SODIUM 143 MMOL/L (135-145); TOTAL PROTEIN 4.4 G/DL (6.4-8.2); eCRCL 93 ML/MIN; eGFR > 90 ML/MIN
[2023-08-31] MEDS ORDERED: potassium CL 10mEq/100ml bag 100 ML IV PRN (23:40)
[2023-08-31] MEDS: propofol 1000mg/100ml bottle 100 ML IV ONE (23:40)
[2023-08-31] MEDS ORDERED: potassium Cl 40MEQ/1/2NS 520ml 520 ML IV PRN (23:40)
[2023-08-31] MEDS ORDERED: potassium Cl 20 mEq SR tablet PO PRN (23:40)
[2023-08-31] MEDS: acetaminophen 1,000mg/100ml IV 100 ML IV PRN (23:41)
[2023-08-31] MEDS: propofol 1000mg/100ml bottle 100 ML IV SCH (23:41)
[2023-08-31] MEDS: traMADol 50MG tablet PO PRN (23:44)
[2023-08-31] MEDS: niCARDipine-NS 40mg/200ml IVPB 200 ML IV SCH (23:44)
[2023-08-31] MEDS: gabapentin 300mg capsule PO SCH (23:46)
[2023-08-31] MEDS: sodium chloride 0.45% 1,000 ML IV SCH (23:52)
[2023-08-31] MEDS: potassium Cl 20mEq/100mL bag 100 ML IV PRN (23:54)
[2023-08-31] MEDS: magnesium 4gm in 100ml NS 100 ML IV PRN (23:55)
[2023-09-01] VITALS (40 sets, daily range): BP systolic 95–138; BP diastolic 48–66; PULSE 80–131; RESP 12–34; O2SAT 90–97
[2023-09-01] MEDS: cefazolin 2gm/D5W 100mL 100 ML IV SCH (00:25)
[2023-09-01] MEDS: ipratropium/albuterol 3ml nebule NEB SCH (01:01)
[2023-09-01] MEDS ORDERED: niCARDipine-NS 40mg/200ml IVPB 200 ML IV PRN (01:55)
[2023-09-01] MEDS: magnesium 2GM in 50ml NS 50 ML IV PRN (02:49)
[2023-09-01] MEDS: albumin (Human) 5% 250ml 250 ML IV PRN (03:13)
[2023-09-01] MEDS: HYDROmorphone inj. 0.5 MG/0.5 ML DISP.SYRIN IV ONE ×3 (03:15→19:21)
[2023-09-01 03:43] LABS: ABG HCO3 19.5 mmol/L (22.0-26.0); ABG PCO2 (T) 37.8 mmHg (35.0-48.0); ABG PH (T) 7.328 (7.340-7.440); ABG PO2 (T) 63.1 mmHg (75.0-100.0); FCOHb 0.5 % (0.0-3.9); FHHb 7.9 % (0.0-5.0); FMetHb 0.3 % (0.0-1.5); FO2Hb 91.3 % (94-97); MODE VENT - CPAP; PATIENT TEMPERATURE 36.7; PEEP 5 cm H2O; TOTAL HEMOGLOBIN 11.9 G/dl (14.0-17.9)
[2023-09-01] MEDS: sodium bicarbonate (8.4%) 1 mEq/ml syringe IV ONE ×3 (04:05→08:59)
[2023-09-01 04:37] LABS: BASOPHILS % (AUTO) 0.2 % (0-1); EOSINOPHILS % (AUTO) 0.1 % (0-6); HEMATOCRIT 30.4 % (42.0-52.0); HEMOGLOBIN 10.5 g/dl (14.0-17.9); LYMPHOCYTES # (AUTO) 0.6 X10'3 (1.1-4.8); LYMPHOCYTES % (AUTO) 5.6 % (21-51); MEAN CORPUSCULAR HEMOGLOBIN 30.5 PG (27.0-31.0); MEAN CORPUSCULAR HGB CONC 34.6 g/dL (33.0-36.5); MEAN CORPUSCULAR VOLUME 88.1 FL (78-98); MEAN PLATELET VOLUME 7.8 FL (7.4-10.4); MONOCYTES # (AUTO) 0.8 X10'3 (0-0.9); MONOCYTES % (AUTO) 7.5 % (2-12); NEUTROPHILS # (AUTO) 9.6 X10'3 (1.8-7.7); NEUTROPHILS % (AUTO) 86.6 % (42-75); PLATELET COUNT 129 X10'3 (140-440); RED BLOOD COUNT 3.45 X10'6 (4.70-6.10); RED CELL DISTRIBUTION WIDTH 13.2 % (11.5-14.5); WHITE BLOOD COUNT 11.1 X10'3 (4.5-11.0)
[2023-09-01 04:51] LABS: ALBUMIN 3.4 G/DL (3.4-5.0); ANION GAP 6 (8-16); BLOOD UREA NITROGEN 12 MG/DL (7-18); BUN/CREATININE RATIO 11.3 (10.0-20.0); CALCIUM 6.9 MG/DL (8.5-10.1); CHLORIDE 108 MMOL/L (99-107); CREATININE 1.06 MG/DL (0.60-1.10); GLUCOSE 129 MG/DL (70-104); PHOSPHORUS 3.2 MG/DL (2.3-4.5); POTASSIUM 4.3 MMOL/L (3.5-5.1); SODIUM 140 MMOL/L (135-145); TOTAL CARBON DIOXIDE 26.4 MMOL/L (24-32); TRIGLYCERIDES 98 MG/DL (20-135); eCRCL 72 ML/MIN; eGFR 70 ML/MIN
[2023-09-01 05:10] LABS: ABG BASE EXCESS -3.7 mmol/L (-2.0-2.0); ABG HCO3 20.2 mmol/L (22.0-26.0); ABG PCO2 (T) 32.6 mmHg (35.0-48.0); ABG PO2 (T) 74.3 mmHg (75.0-100.0); FCOHb 0.4 % (0.0-3.9); FMetHb 0.3 % (0.0-1.5); FO2Hb 94.3 % (94-97); MODE VENT - SIMV; PATIENT TEMPERATURE 37.1; PEEP 5 cm H2O; RESPIRATORY RATE 16 b/min; TIDAL VOLUME 500 mL; TOTAL HEMOGLOBIN 11.2 G/dl (14.0-17.9)
[2023-09-01] MEDS: NACL ISO IV ONE ×3 (06:41→07:56)
[2023-09-01] MEDS: CALCIUM GLUC IV ONE ×3 (06:41→07:56)
[2023-09-01] MEDS: pantoprazole 40mg Tablet.DR PO SCH (07:30)
[2023-09-01] MEDS: DOBUTamine-DoBUTrex 500mg/D5W 250 ML IV SCH (08:03)
[2023-09-01] MEDS: atorvastatin 20mg tablet PO SCH (08:16)
[2023-09-01] MEDS: aspirin 81mg tab.chew PO SCH (08:16)
[2023-09-01] MEDS: furosemide 40mg/4ml inj IV ONE (08:58)
[2023-09-01] MEDS: INSULIN LISPRO 100 UNIT/ML INSULN.PEN MULTI-DOSE SQ SCH (09:00)
[2023-09-01] MEDS: furosemide 40mg/4ml inj ONE (09:08)
[2023-09-01] MEDS: sodium bicarbonate (8.4%) 1 mEq/ml syringe ONE (09:09)
[2023-09-01 09:13] LABS: ABG BASE EXCESS -2.5 mmol/L (-2.0-2.0); ABG HCO3 22.6 mmol/L (22.0-26.0); ABG OXYGEN SATURATION 90.2 % (94-97); ABG PCO2 (T) 40.7 mmHg (35.0-48.0); ABG PH (T) 7.363 (7.340-7.440); ABG PO2 (T) 59.2 mmHg (75.0-100.0); FCOHb 0.7 % (0.0-3.9); FHHb 9.7 % (0.0-5.0); FMetHb 0.3 % (0.0-1.5); FO2Hb 89.3 % (94-97); MODE CPAP; PATIENT TEMPERATURE 37.4; TOTAL HEMOGLOBIN 12.1 G/dl (14.0-17.9)
[2023-09-01] MEDS ORDERED: MESSAGE TO NURSING PO ONE (10:00)
[2023-09-01] MEDS: furosemide inj 100 MG in normal saline 100ml IV soln 90 ML IV SCH (12:09)
[2023-09-01 12:43] LABS: ALANINE AMINOTRANSFERASE 46 U/L (12-78); ALBUMIN 3.6 G/DL (3.4-5.0); ALBUMIN/GLOBULIN RATIO 1.4 (1.1-1.5); ALKALINE PHOSPHATASE 24 IU/L (46-116); ANION GAP 10 (8-16); ASPARTATE AMINO TRANSFERASE 104 U/L (10-37); BILIRUBIN,DIRECT 0.3 MG/DL (0-0.3); BILIRUBIN,TOTAL 0.9 MG/DL (0.1-1.0); BLOOD UREA NITROGEN 13 MG/DL (7-18); BUN/CREATININE RATIO 11.1 (10.0-20.0); CALCIUM 7.7 MG/DL (8.5-10.1); CHLORIDE 104 MMOL/L (99-107); CREATININE 1.17 MG/DL (0.60-1.10); FREE T4 (FREE THYROXINE) 1.14 NG/DL (0.73-1.40); GLUCOSE 153 MG/DL (70-104); POTASSIUM 3.7 MMOL/L (3.5-5.1); SODIUM 142 MMOL/L (135-145); THYROID STIMULATING HORMONE 0.76 ulU/ml (0.34-4.50); TOTAL CARBON DIOXIDE 28.1 MMOL/L (24-32); TOTAL PROTEIN 6.1 G/DL (6.4-8.2); eCRCL 65 ML/MIN; eGFR 62 ML/MIN
[2023-09-01 19:46] LABS: ALBUMIN 3.5 G/DL (3.4-5.0); ANION GAP 7 (8-16); BLOOD UREA NITROGEN 12 MG/DL (7-18); BUN/CREATININE RATIO 10.2 (10.0-20.0); CALCIUM 7.8 MG/DL (8.5-10.1); CHLORIDE 103 MMOL/L (99-107); CREATININE 1.18 MG/DL (0.60-1.10); GLUCOSE 119 MG/DL (70-104); POTASSIUM 3.5 MMOL/L (3.5-5.1); SODIUM 141 MMOL/L (135-145); TOTAL CARBON DIOXIDE 30.7 MMOL/L (24-32); eCRCL 65 ML/MIN; eGFR 62 ML/MIN
[2023-09-01] MEDS: amiodarone 200mg tablet PO SCH (20:06)
[2023-09-01] MEDS: HYDROcodone/acetaminophen 5mg/325mg tablet PO PRN (20:07)
[2023-09-02] VITALS (22 sets, daily range): BP systolic 104–123; BP diastolic 54–84; PULSE 94–109; RESP 12–26; O2SAT 92–97
[2023-09-02 03:31] LABS: ALBUMIN 3.2 G/DL (3.4-5.0); ANION GAP 5 (8-16); BLOOD UREA NITROGEN 12 MG/DL (7-18); BUN/CREATININE RATIO 10.3 (10.0-20.0); CALCIUM 7.7 MG/DL (8.5-10.1); CHLORIDE 102 MMOL/L (99-107); CREATININE 1.17 MG/DL (0.60-1.10); GLUCOSE 116 MG/DL (70-104); POTASSIUM 3.4 MMOL/L (3.5-5.1); SODIUM 139 MMOL/L (135-145); TOTAL CARBON DIOXIDE 32.2 MMOL/L (24-32); eCRCL 65 ML/MIN; eGFR 62 ML/MIN
[2023-09-02] MEDS: metoprolol tartrate 25mg tablet PO SCH (07:03)
[2023-09-02] MEDS: furosemide 40mg/4ml inj IV SCH (08:30)
[2023-09-02] MEDS: metoclopramide 5 mg/ml inj IV SCH (09:03)
[2023-09-02] MEDS: colchicine 0.6mg tablet PO SCH (11:37)
[2023-09-02] MEDS: potassium chloride 8mEq ER tablet PO SCH (11:37)
[2023-09-02] MEDS: spironolactone 25 MG tablet PO SCH (11:39)
[2023-09-02] MEDS ORDERED: midodrine tablet 2.5 MG TABLET PO SCH (12:00)
[2023-09-02] MEDS: potassium Cl 40MEQ/270ML bag 250 ML IV PRN (15:05)
[2023-09-02 20:22] LABS: ALBUMIN 2.8 G/DL (3.4-5.0); ANION GAP 3 (8-16); BLOOD UREA NITROGEN 21 MG/DL (7-18); BUN/CREATININE RATIO 15.9 (10.0-20.0); CALCIUM 7.6 MG/DL (8.5-10.1); CHLORIDE 100 MMOL/L (99-107); CREATININE 1.32 MG/DL (0.60-1.10); GLUCOSE 156 MG/DL (70-104); POTASSIUM 4.6 MMOL/L (3.5-5.1); SODIUM 134 MMOL/L (135-145); TOTAL CARBON DIOXIDE 30.7 MMOL/L (24-32); eCRCL 58 ML/MIN; eGFR 54 ML/MIN
[2023-09-02] MEDS: tamsulosin 0.4mg capsule PO SCH (20:56)
[2023-09-02] MEDS: HYDROcodone/acetaminophen 5mg/325mg tablet PO PRN (21:28)
[2023-09-03] VITALS (26 sets, daily range): BP systolic 98–144; BP diastolic 50–83; PULSE 92–109; RESP 13–30; TEMP 97.6–97.8; O2SAT 91–96
[2023-09-03 03:45] LABS: BASOPHILS % (AUTO) 0.2 % (0-1); EOSINOPHILS # (AUTO) 0.1 X10'3 (0-0.9); EOSINOPHILS % (AUTO) 0.5 % (0-6); HEMATOCRIT 31.5 % (42.0-52.0); HEMOGLOBIN 10.6 g/dl (14.0-17.9); LYMPHOCYTES # (AUTO) 2.8 X10'3 (1.1-4.8); LYMPHOCYTES % (AUTO) 16.6 % (21-51); MEAN CORPUSCULAR HGB CONC 33.8 g/dL (33.0-36.5); MEAN CORPUSCULAR VOLUME 88.8 FL (78-98); MEAN PLATELET VOLUME 8.4 FL (7.4-10.4); MONOCYTES # (AUTO) 1.2 X10'3 (0-0.9); MONOCYTES % (AUTO) 7.1 % (2-12); NEUTROPHILS # (AUTO) 12.6 X10'3 (1.8-7.7); NEUTROPHILS % (AUTO) 75.6 % (42-75); PLATELET COUNT 150 X10'3 (140-440); RED BLOOD COUNT 3.55 X10'6 (4.70-6.10); RED CELL DISTRIBUTION WIDTH 13.1 % (11.5-14.5); WHITE BLOOD COUNT 16.7 X10'3 (4.5-11.0)
[2023-09-03 04:03] LABS: ALANINE AMINOTRANSFERASE 30 U/L (12-78); ALBUMIN 2.9 G/DL (3.4-5.0); ALBUMIN/GLOBULIN RATIO 0.9 (1.1-1.5); ALKALINE PHOSPHATASE 35 IU/L (46-116); ANION GAP 7 (8-16); ASPARTATE AMINO TRANSFERASE 47 U/L (10-37); BILIRUBIN,TOTAL 1.1 MG/DL (0.1-1.0); BLOOD UREA NITROGEN 24 MG/DL (7-18); CALCIUM 7.8 MG/DL (8.5-10.1); CHLORIDE 97 MMOL/L (99-107); CREATININE 1.33 MG/DL (0.60-1.10); GLUCOSE 128 MG/DL (70-104); MAGNESIUM 3.4 MG/DL (1.5-2.4); POTASSIUM 3.8 MMOL/L (3.5-5.1); SODIUM 133 MMOL/L (135-145); TOTAL PROTEIN 6.3 G/DL (6.4-8.2); eCRCL 57 ML/MIN; eGFR 54 ML/MIN
[2023-09-03] MEDS: acetaminophen 325mg tablet PO PRN (04:45)
[2023-09-03 06:37] LABS: ACT @ 1.70 U 323 SEC (193-297); ACT @ 2.84 U 462 SEC (260-420); BASELINE ACT 152 SEC (101-148); PATIENT WEIGHT 99.0k KG
[2023-09-03 06:39] LABS: ISTAT HGB MIX 12.9 g/dl (14.0-17.9); ISTAT Hct MIX 38 %PCV (42-52); ISTAT O2 SATURATION MIX VENOUS 64 % (60-80); ISTAT SOURCE BLNK
[2023-09-03] MEDS ORDERED: magnesium 4gm in 100ml NS 100 ML IV PRN (08:40)
[2023-09-03] MEDS ORDERED: potassium Cl 20 mEq SR tablet PO PRN (08:40)
[2023-09-03] MEDS ORDERED: potassium CL 10mEq/100ml bag 100 ML IV PRN (08:40)
[2023-09-03] MEDS ORDERED: potassium Cl 40MEQ/270ML bag 250 ML IV PRN (08:40)
[2023-09-03] MEDS ORDERED: magnesium 2GM in 50ml NS 50 ML IV PRN (08:40)
[2023-09-03] MEDS: amiodarone 150mg/dext, iso-os 100 ML IV ONE ×2 (09:22→09:26)
[2023-09-03] MEDS: amiodarone/D5 360MG/200ML BAG 200 ML IV SCH (09:43)
[2023-09-03 10:52] LABS: MAGNESIUM 2.5 MG/DL (1.5-2.4)
[2023-09-03 12:05] LABS: POTASSIUM 3.8 MMOL/L (3.5-5.1)
[2023-09-03] MEDS: metoprolol tartrate 25mg tablet PO ONE (12:36)
[2023-09-03] MEDS: potassium Cl 20mEq/100mL bag 100 ML IV PRN (12:37)
[2023-09-03] MEDS: lactose-reduced food (Ensure Enlive) - 237ml bottle PO SCH (13:39)
[2023-09-03] MEDS: furosemide 20MG tablet PO SCH (20:00)
[2023-09-03] MEDS ORDERED: furosemide 40mg/4ml inj IV SCH (20:00)
[2023-09-03] MEDS: magnesium Cl slow-release 64mg tablet PO SCH (20:52)
[2023-09-03] MEDS: metoprolol succinate 25mg (24-HOUR) SR. Tablet PO SCH (20:53)
[2023-09-04] VITALS (16 sets, daily range): BP systolic 98–122; BP diastolic 58–78; PULSE 89–113; RESP 16–26; TEMP 97.4–99.2; O2SAT 91–97
[2023-09-04 02:54] LABS: BASOPHILS % (AUTO) 0.2 % (0-1); EOSINOPHILS % (AUTO) 0.3 % (0-6); HEMATOCRIT 29.8 % (42.0-52.0); HEMOGLOBIN 10.2 g/dl (14.0-17.9); LYMPHOCYTES # (AUTO) 1.7 X10'3 (1.1-4.8); LYMPHOCYTES % (AUTO) 12.2 % (21-51); MEAN CORPUSCULAR HEMOGLOBIN 30.2 PG (27.0-31.0); MEAN CORPUSCULAR HGB CONC 34.2 g/dL (33.0-36.5); MEAN CORPUSCULAR VOLUME 88.4 FL (78-98); MEAN PLATELET VOLUME 8.7 FL (7.4-10.4); MONOCYTES # (AUTO) 1.1 X10'3 (0-0.9); NEUTROPHILS # (AUTO) 10.9 X10'3 (1.8-7.7); NEUTROPHILS % (AUTO) 79.3 % (42-75); PLATELET COUNT 184 X10'3 (140-440); RED BLOOD COUNT 3.37 X10'6 (4.70-6.10); RED CELL DISTRIBUTION WIDTH 13.1 % (11.5-14.5); WHITE BLOOD COUNT 13.7 X10'3 (4.5-11.0)
[2023-09-04 03:06] LABS: ALBUMIN 2.8 G/DL (3.4-5.0); ANION GAP 7 (8-16); BLOOD UREA NITROGEN 30 MG/DL (7-18); BUN/CREATININE RATIO 21.4 (10.0-20.0); CALCIUM 7.9 MG/DL (8.5-10.1); CHLORIDE 96 MMOL/L (99-107); GLUCOSE 123 MG/DL (70-104); MAGNESIUM 2.4 MG/DL (1.5-2.4); POTASSIUM 3.7 MMOL/L (3.5-5.1); PRO BRAIN NATRIURETIC PEPTIDE 5767 PG/ML (0-125); SODIUM 131 MMOL/L (135-145); TOTAL CARBON DIOXIDE 28.2 MMOL/L (24-32); eCRCL 55 ML/MIN; eGFR 51 ML/MIN
[2023-09-04] MEDS: potassium Cl 40MEQ/1/2NS 520ml 520 ML IV PRN (03:31)
[2023-09-04] MEDS ORDERED: metoprolol succinate 25mg (24-HOUR) SR. Tablet PO SCH (08:00)
[2023-09-04] MEDS ORDERED: magnesium citrate 296ml oral solution PO ONE (08:45)
[2023-09-04] MEDS: amiodarone 200mg tablet PO SCH (08:45)
[2023-09-04] MEDS: magnesium citrate 296ml oral solution PO ONE (09:00)
[2023-09-04] MEDS: albumin (Human) 5% 250ml 250 ML IV ONE (10:57)
[2023-09-04] MEDS: metoprolol succinate 25mg (24-HOUR) SR. Tablet PO SCH (20:56)
[2023-09-04] MEDS: enoxaparin 40mg/0.4ml syringe SUBCUT SCH (20:56)
[2023-09-05 02:00] VITALS: BP 118/74; PULSE 91; RESP 15; TEMP 97.2; O2SAT 93
[2023-09-05 06:00] VITALS: BP 111/65; PULSE 85; RESP 19; TEMP 98.2; O2SAT 96
[2023-09-05 06:22] LABS: BASOPHILS % (AUTO) 0.3 % (0-1); EOSINOPHILS # (AUTO) 0.1 X10'3 (0-0.9); HEMATOCRIT 28.9 % (42.0-52.0); HEMOGLOBIN 10.1 g/dl (14.0-17.9); LYMPHOCYTES # (AUTO) 1.9 X10'3 (1.1-4.8); LYMPHOCYTES % (AUTO) 18.6 % (21-51); MEAN CORPUSCULAR HEMOGLOBIN 31.2 PG (27.0-31.0); MEAN CORPUSCULAR HGB CONC 35.1 g/dL (33.0-36.5); MEAN CORPUSCULAR VOLUME 88.9 FL (78-98); MEAN PLATELET VOLUME 7.7 FL (7.4-10.4); MONOCYTES # (AUTO) 1.1 X10'3 (0-0.9); MONOCYTES % (AUTO) 11.1 % (2-12); NEUTROPHILS # (AUTO) 6.9 X10'3 (1.8-7.7); PLATELET COUNT 221 X10'3 (140-440); RED BLOOD COUNT 3.25 X10'6 (4.70-6.10); RED CELL DISTRIBUTION WIDTH 13.2 % (11.5-14.5)
[2023-09-05 06:28] LABS: ALBUMIN 2.7 G/DL (3.4-5.0); ANION GAP 8 (8-16); BLOOD UREA NITROGEN 31 MG/DL (7-18); BUN/CREATININE RATIO 23.8 (10.0-20.0); CALCIUM 8.2 MG/DL (8.5-10.1); CHLORIDE 99 MMOL/L (99-107); GLUCOSE 107 MG/DL (70-104); MAGNESIUM 2.4 MG/DL (1.5-2.4); POTASSIUM 3.5 MMOL/L (3.5-5.1); SODIUM 133 MMOL/L (135-145); TOTAL CARBON DIOXIDE 26.4 MMOL/L (24-32); eCRCL 59 ML/MIN; eGFR 55 ML/MIN
[2023-09-05] MEDS: furosemide 20MG tablet PO SCH (07:30)
[2023-09-05] MEDS: potassium Cl 20 mEq SR tablet PO PRN (07:31)
[2023-09-05 07:36] VITALS: BP_SYST 111
[2023-09-05 07:49] VITALS: RESP 20
[2023-09-05] MEDS ORDERED: METO-395 PO (08:03)
[2023-09-05] MEDS ORDERED: AMI200T PO (08:03)
[2023-09-05] MEDS ORDERED: HYDR-3964 PO (08:03)
[2023-09-05] MEDS ORDERED: ASPI81TA53 PO (08:03)
[2023-09-05] MEDS ORDERED: SPIR25TA PO (08:03)
[2023-09-05 08:20] VITALS: PULSE 87; RESP 16; O2SAT 96
[2023-09-05 08:29] VITALS: PULSE 86; RESP 18
== END 2023-09-05 10:00 | disposition home health service (06) | DRG 233 ==
LOC: ER 17:01 → ED HOLD 23:18 → UNDOADMIN 23:18 → ED HOLD 08-31 01:26 → PCU 3S 08-31 02:00 → ED HOLD 08-31 02:00 → CICU 2S 08-31 22:30 → PCU 3S 09-03 19:41
PROVIDERS: ADMIT Internal Medicine Critical Care Medicine; ATTEND Internal Medicine
PROC: 0210099 Bypass Coronary Artery, One Artery from Left Internal Mammary with Autologous Venous Tissue, Open Approach (ICD-10-PCS; 2023-08-31)
PROC: 06BP4ZZ Excision of Right Saphenous Vein, Percutaneous Endoscopic Approach (ICD-10-PCS; 2023-08-31)
PROC: B24BZZ4 Ultrasonography of Heart with Aorta, Transesophageal (ICD-10-PCS; 2023-08-31)
PROC: 5A1935Z Respiratory Ventilation, Less than 24 Consecutive Hours (ICD-10-PCS; 2023-08-31)
PROC: 02L70CK Occlusion of Left Atrial Appendage with Extraluminal Device, Open Approach (ICD-10-PCS; 2023-08-31)
PROC: 021109W Bypass Coronary Artery, Two Arteries from Aorta with Autologous Venous Tissue, Open Approach (ICD-10-PCS; principal; 2023-08-31 17:26)
PROC: 4A023N8 Measurement of Cardiac Sampling and Pressure, Bilateral, Percutaneous Approach (ICD-10-PCS; 2023-09-01)
PROC: B2111ZZ Fluoroscopy of Multiple Coronary Arteries using Low Osmolar Contrast (ICD-10-PCS; 2023-09-01)
PROC: B2151ZZ Fluoroscopy of Left Heart using Low Osmolar Contrast (ICD-10-PCS; 2023-09-01)
PROC: 5A0935A Assistance with Respiratory Ventilation, Less than 24 Consecutive Hours, High Flow/Velocity Cannula (ICD-10-PCS; 2023-09-01)
PROC: 5A1935Z Respiratory Ventilation, Less than 24 Consecutive Hours (ICD-10-PCS; 2023-09-01)
PROC: 03HY32Z Insertion of Monitoring Device into Upper Artery, Percutaneous Approach (ICD-10-PCS; 2023-09-01)
PROC: B31N1ZZ Fluoroscopy of Other Upper Arteries using Low Osmolar Contrast (ICD-10-PCS; 2023-09-01)
PROC: 5A0935A Assistance with Respiratory Ventilation, Less than 24 Consecutive Hours, High Flow/Velocity Cannula (ICD-10-PCS; 2023-09-02)
DX: I21.4 Non-ST elevation (NSTEMI) myocardial infarction (principal); J96.90 Respiratory failure, unspecified, unspecified whether with hypoxia or hypercapnia; I25.10 Atherosclerotic heart disease of native coronary artery without angina pectoris; Z20.822 Contact with and (suspected) exposure to COVID-19; E78.5 Hyperlipidemia, unspecified; I10 Essential (primary) hypertension; I48.0 Paroxysmal atrial fibrillation; I34.0 Nonrheumatic mitral (valve) insufficiency; Z87.891 Personal history of nicotine dependence
CPT/HCPCS: 0232T; 93306; 93312; 93325; 93460; 96365; 96376; 99291; Z7506; Z7508; 36415; 36600; 71045; 76937; 80048; 80053; 80061; 80076; 82330; 82435; 82803; 82947; 82948; 83036; 83735; 83880; 84100; 84132; 84295; 84439; 84443; 84478; 84484; 85014; 85018; 85025; 85347; 85610; 85730; 86885; 86900; 86901; 86920; 87081; 93005; 93880; 93970; 94002; 94010; 94640; 94668; 94760; 97161; 97530; 99152; 99153; A4333; A4615; A4618; A5200; A6213; A6258; A6449; A7000; A7015; C1725; C1751; C1894; C9113; C9290; G0378; J0131; J0171; J0282; J0610; J0690; J1170; J1250; J1644; J1650; J1815; J1940; J2250; J2405; J2440; J2704; J2720; J2765; J3010; J3370; J3475; J3480; J3490; J7030; J7040; J7050; J7120; P9016; P9045; Q9967

== ENCOUNTER 2023-12-19 09:08 | Emergency (ER) | payer OTHER, MEDICARE ==
[~2023-12-19] VITALS: Ht 180.3 cm; Wt 90.6 kg
[~2023-12-19 09:08] MED LIST changes: +AMI200T PO; +ASPI81TA53 PO; +HYDR-3964 PO; -MAGN200T5 PO; +METO-395 PO; -ONDA4TAB6 PO; +ROSU10TA72 PO; +SPIR25TA PO; -ZINC50TA67 PO
[2023-12-19 10:19] VITALS: BP 158/90; PULSE 76; TEMP 98.7; O2SAT 98
[2023-12-19 11:20] VITALS: RESP 16
== END 2023-12-19 13:07 | disposition home or self-care (01) ==
LOC: ER 09:09
DX: K43.2 Incisional hernia without obstruction or gangrene (principal); I10 Essential (primary) hypertension; Z79.899 Other long term (current) drug therapy; Z79.82 Long term (current) use of aspirin
CPT/HCPCS: 74176; 99284

== ENCOUNTER 2024-06-09 05:58 | Day surgery (SDC) | payer OTHER, MEDICARE ==
[2024-06-03 11:57] LABS: BASOPHILS # (AUTO) 0.1 X10'3 (0-0.2); BASOPHILS % (AUTO) 0.7 % (0-1); EOSINOPHILS # (AUTO) 0.2 X10'3 (0-0.9); EOSINOPHILS % (AUTO) 1.8 % (0-6); LYMPHOCYTES # (AUTO) 3.3 X10'3 (1.1-4.8); LYMPHOCYTES % (AUTO) 37.1 % (21-51); MEAN CORPUSCULAR HEMOGLOBIN 30.5 PG (27.0-31.0); MEAN CORPUSCULAR HGB CONC 35.2 g/dL (33.0-36.5); MEAN CORPUSCULAR VOLUME 86.4 FL (78-98); MEAN PLATELET VOLUME 7.4 FL (7.4-10.4); MONOCYTES # (AUTO) 0.5 X10'3 (0-0.9); MONOCYTES % (AUTO) 6.1 % (2-12); NEUTROPHILS # (AUTO) 4.8 X10'3 (1.8-7.7); NEUTROPHILS % (AUTO) 54.3 % (42-75); PRE OP HEMATOCRIT 44.2 % (42.0-52.0); PRE OP HEMOGLOBIN 15.6 g/dL (14.0-17.9); PRE OP PLATELET COUNT 228 X10'3 (140-440); PRE OP WHITE BLOOD COUNT 8.8 10'3 (4.8-10.8); RED BLOOD COUNT 5.11 X10'6 (4.70-6.10); RED CELL DISTRIBUTION WIDTH 13.6 % (11.5-14.5)
[2024-06-03 12:25] LABS: ALKALINE PHOSPHATASE 66 IU/L (46-116); BLOOD UREA NITROGEN 19 MG/DL (7-18); BUN/CREATININE RATIO 17.8 (10.0-20.0); CALCIUM 8.7 MG/DL (8.5-10.1); CHLORIDE 104 MMOL/L (99-107); CREATININE 1.07 MG/DL (0.60-1.10); PRE OP ALT 48 U/L (30-65); PRE OP ANION GAP 7 (8-16); PRE OP AST 19 U/L (10-37); PRE OP BILIRUB, TOTAL 0.6 MG/DL (0.0-1.0); PRE OP GLUCOSE 111 MG/DL (70-104); PRE OP POTASSIUM 4.1 MMOL/L (3.4-5.1); PRE OP SODIUM 140 MMOL/L (135-145); TOTAL CARBON DIOXIDE 29.1 MMOL/L (24-32); TOTAL PROTEIN 8.1 G/DL (6.4-8.2); eGFR 69 ML/MIN
[~2024-06-09] VITALS: Ht 180.3 cm; Wt 91.0 kg
[2024-06-09] VITALS (12 sets, daily range): BP systolic 132–167; BP diastolic 77–99; PULSE 63–85; RESP 5–16; TEMP 97.3; O2SAT 91–97
[2024-06-09] MEDS: metoprolol tartrate 12.5mg (1/2 tablet) PO ONE (05:30)
[2024-06-09] MEDS: ceFAZolin 2gm in dextrose, iso 50 ML IV ONE (05:30)
[2024-06-09] MEDS: DOCUMENT DATE & TIME OF BETA-BLOCKER PO ONE (05:30)
[~2024-06-09 05:58] MED LIST changes: -AMI200T PO; +ASPI-1265 PO; -ASPI81TA53 PO; +DOCUMENT DATE & TIME OF BETA-BLOCKER PO ONE; -HYDR-3964 PO; +MULT-1074 PO; -SPIR25TA PO; +TUMERIC PO; +[UNRECOGNIZED DRUG - OTHER] PO; +ceFAZolin 2gm in dextrose, iso 50 ML IV ONE; +famotidine 20mg tablet PO ONE; +ringers solution, lacted 1,000 ML IV SCH
[2024-06-09] MEDS: famotidine 20mg tablet PO ONE (06:43)
[2024-06-09] MEDS: ringers solution, lacted 1,000 ML IV SCH (06:44)
[2024-06-09] MEDS ORDERED: LORazepam 2 mg/ml vial ONE (06:53)
[2024-06-09] MEDS ORDERED: BUPIVAcaine 0.5% inj/PF 30 ML ONE (07:02)
[2024-06-09] MEDS ORDERED: LIDOcaine 1% (10mg/ml)w/preservative inj. 20ml MDV ONE (07:03)
[2024-06-09] MEDS: ceFAZolin 1000mg inj IR ONE ×2 (07:30→08:00)
[2024-06-09] MEDS ORDERED: fentaNYL/PF 50MCG/1 ML 2ML syringe ONE (07:58)
[2024-06-09] MEDS ORDERED: midazolam 1 mg/ML 2ml injection ONE (07:58)
[2024-06-09] MEDS ORDERED: ondansetron/PF 4mg/2ml inj ONE (07:59)
[2024-06-09] MEDS ORDERED: dexamethasone sod phosphate 4mg/ml inj. ONE (07:59)
[2024-06-09] MEDS ORDERED: rocuronium 10mg/ml inj IV ONE (07:59)
[2024-06-09] MEDS ORDERED: propofol inj 20 ML IV ONE (08:00)
[2024-06-09] MEDS ORDERED: sevoflurane 250ml liquid IH ONE (08:00)
[2024-06-09] MEDS ORDERED: LIDOcaine 2% (20mg/ml) 5ml vial ONE (08:00)
[2024-06-09] MEDS ORDERED: acetaminophen 1,000mg/100ml IV 100 ML IV ONE (08:22)
[2024-06-09] MEDS ORDERED: ceFAZolin 1000mg inj ONE (08:31)
[2024-06-09] MEDS ORDERED: HYDR-3964 PO (09:12)
== END 2024-06-09 10:53 | disposition home or self-care (01) ==
LOC: PAS 05:58
PROVIDERS: ATTEND Thoracic Surgery (Cardiothoracic Vascular Surgery)
DX: K43.2 Incisional hernia without obstruction or gangrene (principal); I10 Essential (primary) hypertension; I21.4 Non-ST elevation (NSTEMI) myocardial infarction; Z95.1 Presence of aortocoronary bypass graft; Z98.890 Other specified postprocedural states; Z79.82 Long term (current) use of aspirin; Z79.899 Other long term (current) drug therapy
CPT/HCPCS: 36415; 49593; 80053; 82948; 85025; 93005; C1781; J0131; J0665; J0690; J1100; J2003; J2250; J2405; J2704; J2710; J3010; J3490; J7120; Z7506; Z7508; Z7512; A4215; A4618; A6258; A7000; J2060